=== PATIENT | female | born 1955 | race Caucasian/White ===

== ENCOUNTER 2016-11-12 14:57 | Inpatient (IN) | payer MEDICARE, OTHER ==
[~2016-11-12] VITALS: Ht 154.9 cm; Wt 70.3 kg
[2016-11-12] MEDS ORDERED: LYRICA225 MG PO (16:12)
[2016-11-12] MEDS ORDERED: SPIRONOLACTONE25 MG PO (16:13)
[2016-11-12] MEDS ORDERED: DIABETA 5 MG TAB5 MG PO (16:13)
[2016-11-12] MEDS ORDERED: IRON159 MG PO (16:15)
[2016-11-12] MEDS ORDERED: LISINOPRIL20 MG PO (16:15)
[2016-11-12] MEDS ORDERED: HYDROCHLOROTHIA25 MG PO (16:16)
[2016-11-12] MEDS ORDERED: LASIX40 MG PO (16:16)
[2016-11-12] MEDS ORDERED: MULTIVITAMINS1 EAC1 PO (16:17)
[2016-11-12] MEDS ORDERED: METOPROLOL TART25 MG PO (16:17)
[2016-11-12] MEDS ORDERED: LANTUS100 UNIT/1 SQ (16:18)
[2016-11-12] MEDS ORDERED: NORVASC 5 MG TAB5 MG PO (16:18)
[2016-11-12] MEDS ORDERED: CITALOPRAM HBR20 MG PO (16:19)
[2016-11-12] MEDS ORDERED: NOVOLOG100 UNIT/1 SQ (16:19)
[2016-11-12] MEDS ORDERED: NORCO 7.5-3251 EACH PO (16:19)
[2016-11-12 17:23] LABS: HEMOGLOBIN 11.2 gm/dl (12.3-15.3); RED BLOOD COUNT 4.75 M/UL (4.00-5.10); WHITE BLOOD COUNT 8.4 K/UL (4.5-11.0)
[2016-11-13 06:27] LABS: HEMOGLOBIN 11.2 gm/dl (12.3-15.3); RED BLOOD COUNT 4.78 M/UL (4.00-5.10); WHITE BLOOD COUNT 8.2 K/UL (4.5-11.0)
--- NOTE | 2016-11-13 08:46 | NUR ---
SPOKEN WITH DR. ESPINOZA R/T OF PATIENT POSSIBLE SURGERY TODAY, PLANNED TOMORROW, UNLESS HOSPITALIST HAVE OTHER PLAN. ORDER RECEIVED. SPOKEN WITH DR. AMBROCIO C/O [id number]. AGREEABLE FOR PATIENT TO EAT TODAY THEN NPO AFTER MN PER DR. ESPINOZA ORDER. INFORMED PATIENT
--- NOTE | 2016-11-14 01:29 | NUR ---
2200 11/13/16 PATIENT WAS NOTIFIED OF A BLOOD GLUCOSE OF 185 AND THAT SHE WAS PRESCRIBED 2 UNITS OF NOVOLOG PER THE LOW DOSE SLIDING SCALE. PATIENT REFUSED THE 2 UNITS OF INSULIN STATING "I ONLY TAKE THAT THREE TIMES A DAY." PATIENT'S REFUSAL IS ALSO DOCUMENTED IN THE MAR.
[2016-11-14 05:25] LABS: HEMOGLOBIN 11.2 gm/dl (12.3-15.3); RED BLOOD COUNT 4.76 M/UL (4.00-5.10); WHITE BLOOD COUNT 7.7 K/UL (4.5-11.0)
[2016-11-15 05:14] LABS: HEMOGLOBIN 10.6 gm/dl (12.3-15.3); RED BLOOD COUNT 4.58 M/UL (4.00-5.10); WHITE BLOOD COUNT 8.5 K/UL (4.5-11.0)
[2016-11-16 05:12] LABS: HEMOGLOBIN 10.2 gm/dl (12.3-15.3); RED BLOOD COUNT 4.39 M/UL (4.00-5.10); WHITE BLOOD COUNT 7.3 K/UL (4.5-11.0)
--- NOTE | 2016-11-17 03:29 | NUR ---
DR. ESPINOZA VISITED WITH PT. THIS PAST EVENING @ [employer]. [employer]. SHE CHANGED THE DRESSING TO RIGHT FOOT WITHOUT MY PRESENCE. SHE REQUEST THAT NO DRESSING CHANGES MADE UNTIL PT. HAS FOLLOW-UP WITH THEM IN OFFICE. PT. IS PERMITTED TO BEAR WEIGHT TO RLE WITH POST OP SHOE AND NO WEIGHT BEARING TO LLE. SHE HAS INDICATED TO DR. ESPINOZA THAT SHE HAS CRUTCHES AT HOME.
[2016-11-17 05:28] LABS: HEMOGLOBIN 10.6 gm/dl (12.3-15.3); RED BLOOD COUNT 4.53 M/UL (4.00-5.10); WHITE BLOOD COUNT 7.8 K/UL (4.5-11.0)
[2016-11-17] MEDS ORDERED: ZYVOX 600 MG T600 MG PO (18:33)
== END 2016-11-17 18:53 | disposition home or self-care (01) | DRG 464 ==
LOC: MED SURG 4 15:17
PROVIDERS: Physician Assistant; Podiatrist Foot & Ankle Surgery; ADMIT Internal Medicine
PROC: 0Y6N0ZF Detachment at Left Foot, Partial 5th Ray, Open Approach (ICD-10-PCS; principal; 2016-11-14 14:00)
PROC: 0JBQ0ZZ Excision of Right Foot Subcutaneous Tissue and Fascia, Open Approach (ICD-10-PCS; 2016-11-14 14:00)
DX: M86.172 Other acute osteomyelitis, left ankle and foot (principal); N17.9 Acute kidney failure, unspecified; E11.621 Type 2 diabetes mellitus with foot ulcer; B95.62 Methicillin resistant Staphylococcus aureus infection as the cause of diseases classified elsewhere; D50.9 Iron deficiency anemia, unspecified; I10 Essential (primary) hypertension; E78.5 Hyperlipidemia, unspecified; I73.9 Peripheral vascular disease, unspecified; Z95.828 Presence of other vascular implants and grafts; E11.51 Type 2 diabetes mellitus with diabetic peripheral angiopathy without gangrene; F41.9 Anxiety disorder, unspecified; F32.9 Major depressive disorder, single episode, unspecified; Z90.49 Acquired absence of other specified parts of digestive tract; Z90.710 Acquired absence of both cervix and uterus; Z98.41 Cataract extraction status, right eye; Z98.42 Cataract extraction status, left eye; Z98.890 Other specified postprocedural states; Z87.891 Personal history of nicotine dependence; Z80.9 Family history of malignant neoplasm, unspecified; Z88.2 Allergy status to sulfonamides; Z79.899 Other long term (current) drug therapy; Z79.4 Long term (current) use of insulin; Z79.891 Long term (current) use of opiate analgesic; G89.4 Chronic pain syndrome; I65.22 Occlusion and stenosis of left carotid artery
CPT/HCPCS: 36415; 71010; 71020; 73630; 80048; 80053; 80202; 82962; 83036; 83735; 85027; 85610; 85730; 86850; 86900; 86901; 87040; 87070; 87075; 87077; 87186; 87205; 93005; C1762; J1200; J1650; J2250; J2405; J3010; J3370; J7030; J7050; J7070; J7120